=== PATIENT | male | born 1950 | race Caucasian/White ===

== ENCOUNTER 2016-05-25 06:34 | Day surgery (SDC) | payer MEDICARE ==
[~2016-05-25 06:34] MED LIST: ACET325T9 PO; LISI10TA2 PO; METO25TA4 PO; PRED20TA PO; RIVA15TA PO; TRAM50TA PO
[2016-05-25] MEDS ORDERED: HYDROMORPHONE 2 MG/ML VIAL. IV PRN (07:00)
[2016-05-25] MEDS ORDERED: MORPHINE SULFATE 2 MG/ML DISP.SYRIN. IV PRN (07:00)
[2016-05-25] MEDS ORDERED: ONDANSETRON PF 4 MG/2 ML VIAL. IV PRN (07:00)
[2016-05-25] MEDS ORDERED: PROCHLORPERAZINE 10 MG/2 ML VIAL. IV PRN (07:00)
[2016-05-25] MEDS ORDERED: FENTANYL PF 100 MCG/2 ML VIAL. IV PRN ×2 (07:00)
[2016-05-25] MEDS ORDERED: IV RINGERS,LACTATED 1000ML 1,000 ML IV SCH (07:00)
[2016-05-25] MEDS ORDERED: LIDOCAINE 1% 1 ML SYRINGE. ID PRN (07:00)
[2016-05-25] MEDS ORDERED: LIDOCAINE 2% TOPICAL JELLY 30GM TUBE. TP ONE (07:40)
[2016-05-25] MEDS ORDERED: BENZOCAINE ONE 20% MUCOSAL SPRAY. (07:40)
[2016-05-25] MEDS ORDERED: LIDOCAINE 2% VISCOUS 15 ML SOLUTION. ONE (07:40)
[2016-05-25] MEDS ORDERED: PROPOFOL 20 ML IV ONE (07:50)
--- NOTE | 2016-05-25 08:26 | EKG ---
[facility] [address] [place] [address] Test Date: 2016-05-25 Test Time: 08:24:49 Pat Name: VERONICA GARZA Department: Room: Gender: M Audit Associate: JERRICA : 1950 Requested By: CHRISTIAN CRAWLEY Order Number: [id number] Reading MD: Christian Crawley Measurements Intervals [place] Rate: 89 P: 62 [place]: 180 QRS: -24 QRSD: 88 T: 14 QT: 354 QTc: 432 Interpretive Statements SINUS RHYTHM ATRIAL PREMATURE COMPLEX(ES) Electronically Signed On 05-25-2016 17:56:14 CDT by Christian Crawley
[2016-05-25 08:51] VITALS: BP 106/69
--- NOTE | 2016-05-25 09:58 | CARD ---
APPROVED REPORT EXAM: Transesophageal echocardiogram with color flow Doppler and Synchronized Cardioversion. INDICATION Atrial Fibrillation Reason For Test : Rule out Intracardiac Thrombus. PROCEDURE After obtaining informed consent, patient underwent transesophageal echo in the PACU. Type of Sedation : General Anesthesia Sedation was provided by anesthesiologist, see EMR for medications administered. Transesophageal probe was inserted and advanced into esophagus by Roldan Crawley MD. The TOSHIA was performed without complications. Synchronized Cardioversion attempted: Successful Synchronized Cardioversion acheived with 200 Joules after 1 attempt(s). Rhythm following Synchronized Cardioversion: Normal Sinus Rhythm Throughout the procedure, the blood pressure, pulse oximetry, cardiac rhythm, and rate were monitored . The patient tolerated the procedure without adverse effects. Recovery from conscious sedation was une ventful and vital signs were stable. LEFT VENTRICLE The left ventricle is normal size. There is mild concentric left ventricular hypertrophy. Left ventri ade systolic function is mild to moderately impaired. The Ejection Fraction is 40%. There is global h ypokinesis of the left ventricle. No left ventricle thrombus noted on this study. RIGHT VENTRICLE The right ventricle is normal size. The right ventricular systolic function is normal. ATRIA The left atrium appears dilated. The right atrium size is normal. The interatrial septum is intact wi th no evidence for an atrial septal defect or patent foramen ovale as noted on 2-D or Doppler imaging . There is no thrombus noted in the left atrial appendage. AORTIC VALVE The aortic valve is trileaflet. Doppler and Color Flow revealed mild to moderate aortic regurgitation . There is no significant aortic valvular stenosis. MITRAL VALVE There is a moderate prolapse of the P2 segment of the posterior leaflet. There is no mitral valve rm nosis. Doppler and Color Flow revealed moderate mitral regurgitation. TRICUSPID VALVE The tricuspid valve is normal in structure and function. Doppler and Color Flow revealed mild tricusp id regurgitation. There is no tricuspid valve stenosis. PULMONIC VALVE The pulmonic valve is not well visualized. GREAT VESSELS The aortic root is normal in size. The ascending aorta is normal in size. Critical Notification Critical Value: No <Conclusion> Left ventricle systolic function is mild to moderately impaired. The Ejection Fraction is 40%. There is global hypokinesis of the left ventricle. There is no thrombus noted in the left atrial appendage. Doppler and Color Flow revealed mild to moderate aortic regurgitation. Doppler and Color Flow revealed moderate mitral regurgitation.
--- NOTE | 2016-05-25 23:55 | ACF ---
Admission Forms Criteria CARDIOLOGY GRG Clinical Indications for Admission to Inpatient Care ( Place 'X' for any and all applicable criteria): Hospital admission is needed for appropriate care of the patient because of ANY ONE of the following (1): [ ] I. Hemodynamic instability as indicated by ALL of the following (1)(2)(3) (4)(5) [ ]a) Vital signs or other findings not as expected for chronic patient condition or baseline [ ]b) Instability indicated by ANY ONE of the following: [ ]i) Hypotension [ ]ii) Symptomatic Tachycardia unresponsive to treatment ( e.g., analgesia, fluids, sedation as indicated) [ ]iii) Inadequate perfusion indicated by ANY ONE of the following: [ ] 1) Lactic acidosis (> 2 mmol/L) [ ] 2) New abnormal capillary refill (> 3 seconds) [ ] 3) Reduced urine output [ ] 4) New altered mental status [ ]iv) Orthostatic vital sign changes unresponsive to treatment (e.g., fluids) [ ]v) IV inotropic or vasopressor medication required to maintain adequate blood pressure or perfusion [ ] II. Severe heart failure as indicated by ANY ONE of the following(17)(18) [ ]a) Respiratory distress [ ]b) Hypotension [ ]c) Anasarca (refractory to outpatient therapy) [ ]d) Cardiac arrhythmias of immediate concern [ ]e) Myocardial ischemia [ ] III. Cardiac arrhythmias or findings of immediate concern indicated by ANY ONE of the following (19)(20): [ ] a) Heart rhythms that are inherently dangerous or unstable indicated by ANY ONE of the following (21)(22)(23): [ ] i) Resuscitated ventricular fibrillation or cardiac arrest [ ] ii) Ventricular escape rhythm [ ] iii) Sustained ventricular tachycardia (30 seconds or more of ventricular rhythm at greater than 100 beats per minute) [ ] iv) Nonsustained ventricular tachycardia and ANY ONE of the following: [ ] 1) Suspected cardiac ischemia as cause or consequence of ventricular tachycardia [ ] 2) In setting of acute myocarditis [ ] b) Unstable cardiac conduction defects indicated by ANY ONE of the following(23)(24)(25) [ ] i) Type II second-degree atrioventricular block [ ]ii) Third-degree atrioventricular block [ ]iii) New-onset left bundle branch block with suspected myocardial ischemia [ ]c) Any heart rhythm and ANY ONE of the following (21)(22)(26)(27) (28) [ ] i) Continuous long-term ECG monitoring needed (e.g., initiation of drug requiring monitoring for more than 24 hours) [ ] ii) Patient has automatic implanted cardioverter defibrillator that is repeatedly firing, malfunctioning, or in need of immediate adjustment of settings beyond the scope of ambulatory or observation care [ ]d) Heart rhythms of concern due to ANY ONE of the following: [ ] i) Hypotension [ ] ii) Respiratory distress [ ] iii) Association with other significant symptoms (e.g., bradycardia with syncope or ongoing dizziness, supraventricular tachycardia with chest pain (14)(15)(17) [ ] IV. Monitoring for cardiac contusion beyond the scope of observation care needed [A](30)(31)(32) [ ] V. Surgical or device complication (e.g., valve replacement complication , pacemaker dysfunction) (35)(41)(44)(45)(46) [ ] . Inpatient palliative care needed. [B](49) Also use Inpatient Palliative Care Criteria [ ] VII. Nonbacterial thrombotic (marantic) endocarditis (36)(43)(47)(48) [X] VIII. Cardiology condition, symptom, or finding for which emergency and observation care has failed or are not considered appropriate. [ ] IX. Acute valvular disease requiring inpatient as indicated by ANY ONE of the following (41) [ ]a) Acute valvular regurgitation (42) [ ]b) Noninfectious valvulitis (43) [ ]c) Obstructive valve thrombosis [ ]d) Paravalvular leak [ ]e) Other significant valvular disorder remaining after emergency or observation level of care (as appropriate) [ ]X. Pericardial disease requiring inpatient treatment as indicated by ANY ONE of the following (33)(34)(35)(36)(37) [ ]a) Suspected tamponade (38)(39)(40) [ ]b) Hemopericardium [ ]c) Other significant pericardial disorder remaining after emergency or observation level of care (as appropriate) [ ] XI. Cardiac ischemia beyond scope of emergency and observation care. [ ] XII. Hypertension requiring inpatient treatment as indicated by ANY ONE of the following (6)(7)(8) [ ]a) SBP greater than 220 mm Hg or DBP greater than 120 mmHg despite treatment [ ]b) SBP greater than 140 mm Hg or DBP greater than 100 mm Hg with evidence of acute end organ damage as indicated by ANY ONE of the following [ ] i) Encephalopathy [ ] ii) Acute renal failure as indicated by new onset of ANY ONE of the following (9)(10)(11)(12)(13) [ ]1) 3-fold rise in serum creatinine from baseline [ ]2) Serum creatinine greater than 4 mg/dL ( 354 micromoles/L) with acute rise greater than 0.5 mg/dL (44.2 micromoles/L) [ ]3) Reduction of more than 75% in estimated glomerular filtration rate from baseline [ ]4) Estimated glomerular filtration rate less than 35 mL/min/1.73m2 (0.59 mL/sec/1.73m2) in child up to 18 years of age [ ]5) Cessation of urine output indicated by ALL of the following [ ]A. Adequate volume status [ ]B. Inadequate urine output as indicated by ANY ONE of the following [ ]a. Urine output less than 0.3 mL/kg/hr for 24 hours [ ]b. Anuria (urine output less than 0.1 mL/kg/hr) for 12 hours [ ] iii) Aortic dissection [ ] iv) Myocardial Ischemia [ ] v) Left ventricular heart failure [ ]vi) Retinal Hemorrhage [ ]vii) Other significant finding [ ]c) Hypertension in child requiring inpatient treatment as indicated by ALL of the following(14)(15)(16) [ ] i) Outpatient treatment not effective, not available, or not appropriate [ ]ii) SBP or DBP greater than 95th percentile for age [ ]iii) Evidence of acute end organ damage as indicated by ANY ONE of the following [ ]1) Altered mental status [ ]2) Acute renal failure as indicated by new onset of ANY ONE of the following(9)(10)(11)(12)(13) [ ]A. 3-fold rise in serum creatinine from baseline [ ]B. Serum creatinine greater than 4 mg/dL (354 micromoles/L) with acute rise greater than 0.5 mg/dL (44.2 micromoles/L) [ ]C. Reduction of more than 75% in estimated glomerular filtration rate from baseline [ ]D. Estimated glomerular filtration rate less than 35 mL/min/1.73m2 (0.59 mL/sec/1.73m2) in child up to 18 years of age [ ]E. Cessation of urine output indicated by ALL of the following [ ]a. Adequate volume status [ ]b. Inadequate urine output as indicated by ANY ONE of the following [ ]i) Urine output less than 0.3 mL/kg/hr for 24 hours [ ]ii) Anuria ( urine output less than 0.1 mL/kg/hr) for 12 hours [ ]3) Severe headache [ ]4) Visual disturbance [ ]5) Retinal hemorrhage [ ]6) Other significant finding [ ]XIII. Complications of transplanted heart indicated by ANY ONE of the following(61): [ ]a) Acute graft rejection requiring inpatient management (eg, intravenous immunosuppression)(62)(63) [ ]b) Acute graft heart failure indicated by ANY ONE of the following(64): [ ]i) Hemodynamic instability [ ]ii) Cardiac arrhythmias of immediate concern [ ]iii) Pulmonary edema that is very severe (eg, mechanical ventilation needed, imminent or likely, need for 100% oxygen to keep oxygen saturation above 90%) [ ]iv) Pulmonary edema that is persistent as indicated by ALL of the following: [ ]1) New need for oxygen therapy to keep oxygen saturation above 90% (or increased FiO2 need from baseline) [ ]2) Has not improved sufficiently with emergency department or observation care IV diuretics or other heart failure treatments[E] [ ]v) Altered mental status that is severe or persistent [ ]vi) Increased creatinine (new on laboratory test) with reduction of more than 50% in estimated glomerular filtration rate from baseline [ ]vii) Progressively (ongoing) rising creatinine (known from past laboratory test) with reduction of more than 25% in estimated glomerular filtration rate from baseline [ ]viii) Acute renal failure [ ]ix) Acute peripheral ischemia (eg, examination shows pulseless, cool, mottled, or cyanotic extremity) [ ]x) Pulmonary artery catheter monitoring needed [ ]xi) Other sign or symptom of heart failure requiring inpatient treatment (ie, too severe or not responsive to outpatient and observation care treatment) [ ]c) Infection requiring inpatient management (eg, Hemodynamic instability, need for intravenous antimicrobial treatment)(66)(67)(68)(69)(70) [ ]d) Cardiac allograft vasculopathy requiring inpatient management ( eg evidence of cardiac ischemia)(71) [ ]e) Other complication of transplanted heart (eg, stroke, severe pulmonary hypertension, severe valvular dysfunction) requiring inpatient management(72) The original [facility] content created by [facility] has been revised. The portions of the content which have been revised are identified through the use of italic text or in bold, and [facility] has neither reviewed nor approved the modified material. All other unmodified content is copyright [facility]. Please see references footnoted in the original [facility] edition 2016 Admission Criteria Met?: Yes ELIF FUENTES. May 25, 2016 23:55
== END 2016-05-25 09:18 | disposition home or self-care (01) ==
LOC: SURG 06:34
PROVIDERS: ATTEND Internal Medicine Cardiovascular Disease
DX: I35.1 Nonrheumatic aortic (valve) insufficiency (principal); I07.1 Rheumatic tricuspid insufficiency; I48.91 Unspecified atrial fibrillation
CPT/HCPCS: 76376; 93005; 93312; 93325; J2704; 92960

== ENCOUNTER → 2017-08-23 | Day surgery (SDC) | payer MEDICARE ==
[~2017-08-23] MED LIST changes: -ACET325T9 PO; +LIDOCAINE 2% PF Vial for OR 5 ML VIAL.; -LISI10TA2 PO; -METO25TA4 PO; -PRED20TA PO; +PROPOFOL 20 ML IV; -RIVA15TA PO; -TRAM50TA PO
== END | disposition home or self-care (01) ==
LOC: ENDOS 12:53
DX: D12.2 Benign neoplasm of ascending colon (principal); D12.3 Benign neoplasm of transverse colon; K57.30 Diverticulosis of large intestine without perforation or abscess without bleeding; M35.3 Polymyalgia rheumatica; I48.91 Unspecified atrial fibrillation; Z79.82 Long term (current) use of aspirin; Z98.890 Other specified postprocedural states; Z87.891 Personal history of nicotine dependence; Z86.010 Personal history of colon polyps
CPT/HCPCS: 45380; 45385; 88305; J2001; J2704

== ENCOUNTER → 2017-09-27 | Outpatient (CLI) | payer MEDICARE ==
[2017-09-27] MEDS: REGADENOSON 0.4 MG/5 ML DISP.SYRIN. IV (09:45)
== END | disposition home or self-care (01) ==
LOC: NM 09:03
DX: I48.0 Paroxysmal atrial fibrillation (principal); I10 Essential (primary) hypertension; Z87.891 Personal history of nicotine dependence; Z86.010 Personal history of colon polyps
CPT/HCPCS: 78452; 93017; 96374; 96375; 96376; A9500; J2785

== ENCOUNTER → 2017-11-10 | Day surgery (SDC) | payer MEDICARE ==
[~2017-11-10] MED LIST changes: +ACET325T9 PO; +APIX5TAB PO; +ASPI325T8 PO; +BENZOCAINE ONE 20% MUCOSAL SPRAY.; +BENZOCAINE ONE 20% MUCOSAL SPRAY. MM SCH; +DRON400T PO; +GLUC100018 PO; +HYDR200T71 PO; +HYDROmorphone 2 MG/ML VIAL IV PRN; +IBUP-1027 PO; +IV RINGERS,LACTATED 1000ML 1,000 ML IV SCH; +LIDOCAINE 1% PF 2 ML VIAL. ID PRN; -LIDOCAINE 2% PF Vial for OR 5 ML VIAL.; +LIDOCAINE 2% TOPICAL JELLY 5GM TUBE. TP ONE; +LIDOCAINE 2% VISCOUS 15 ML SOLUTION. ONE; +LIDOCAINE 2% VISCOUS 15 ML SOLUTION. SWSW ONE; +LISI10TA2 PO; +METO25TA4 PO; +MORPHINE SULFATE 2 MG/ML VIAL. IV PRN; +ONDANSETRON PF 4 MG/2 ML VIAL. IV PRN; +PRED20TA PO; +PROCHLORPERAZINE 10 MG/2 ML VIAL. IV PRN; -PROPOFOL 20 ML IV; +PROPOFOL 20 ML IV ONE; +RIVA15TA PO; +TRAM50TA PO; +TURM500C4 PO; +fentaNYL PF VIAL 100 MCG/2 ML VIAL IV PRN
--- NOTE | 2017-11-10 14:09 | EKG ---
[facility] [address] [place] [address] Test Date: 2017-11-10 Test Time: 13:13:19 Pat Name: VERONICA GARZA Department: Room: Gender: M Timber Packer: JJ : 1950 Requested By: LETICIA MOELLER Order Number: [id number] Reading MD: Christian Crawley MD Measurements Intervals [place] Rate: 72 P: [place]: QRS: -21 QRSD: 90 T: 11 QT: 378 QTc: 415 Interpretive Statements ATRIAL FIBRILLATION WITH CONTROLLED VENTRICULAR RESPONSE NON-SPECIFIC ST/T CHANGES Electronically Signed On 11-15-2017 11:44:59 CDT by Christian Crawley MD
--- NOTE | 2017-11-10 15:16 | EKG ---
[facility] [address] [place] [address] Test Date: 2017-11-10 Test Time: 15:10:20 Pat Name: VERONICA GARZA Department: Room: Gender: M Electronic Pagination System Operator: VALARIE : 1950 Requested By: CHRISTIAN CRAWLEY Order Number: [id number] Reading MD: Christian Crawley MD Measurements Intervals [place] Rate: 61 P: 45 AR: 236 QRS: -24 QRSD: 98 T: 16 QT: 410 QTc: 414 Interpretive Statements SINUS RHYTHM ATRIAL PREMATURE COMPLEX(ES) Electronically Signed On 11-15-2017 11:45:44 CDT by Christian Crawley MD
[2017-11-10 16:00] VITALS: BP 125/74
--- NOTE | 2017-11-10 16:27 | CARD ---
MR#: [id number] Date of Study: 11/10/2017 Ordering Physician: EDWARD COBB, Referring Physician: EDWARD COBB, Tech: LAISHA Phillips APPROVED REPORT EXAM: Transesophageal echocardiogram with color flow Doppler and Synchronized Cardioversion. Mitral Valve MV E Peak Gr.133mmHg Reason For Test : Rule out Intracardiac Thrombus. PROCEDURE After obtaining informed consent, patient underwent transesophageal echo in the PACU. Type of Sedation : General Anesthesia Sedation was administered by Mau Ramirez. Sedation was achieved with Propofol 150mg intravenously. Transesophageal probe was inserted and advanced into esophagus by Roldan Cobb MD. The TOSHIA was performed without complications. Synchronized Cardioversion attempted: Successful Synchronized Cardioversion acheived with 200 Joules after 1 attempt(s). Throughout the procedure, the blood pressure, pulse oximetry, cardiac rhythm, and rate were monitored . The patient tolerated the procedure without adverse effects. Recovery from general anesthesia was une ventful and vital signs were stable. LEFT VENTRICLE The left ventricle is normal size. There is mild concentric left ventricular hypertrophy. Moderate LV dysfunction. EF 45-50%. Difficult to estimate due to afib. There is global hypokinesis of the left v entricle. Tissue Doppler imaging reveals moderate left ventricular diastolic dysfunction. No left tyrese tricle thrombus noted on this study. There is no ventricular septal defect visualized. RIGHT VENTRICLE The right ventricle is normal size. There is normal right ventricular wall thickness. The right ventr icular systolic function is normal. ATRIA The left atrium is moderately dilated. The right atrium is mildly dilated. The interatrial septum is intact with no evidence for an atrial septal defect or patent foramen ovale as noted on 2-D or Dopple r imaging. There is no thrombus noted in the left atrial appendage. AORTIC VALVE The aortic valve is mildly thickened. Doppler and Color Flow revealed mild aortic regurgitation. Ther e is no significant aortic valvular stenosis. There is no aortic valvular vegetation. MITRAL VALVE The mitral valve is mildly thickened. A mild mitral valve prolapse is present. There is no mitral candie ve stenosis. Doppler and Color-flow revealed mild to moderate mitral regurgitation. TRICUSPID VALVE The tricuspid valve leaflets are thickened , but open well. Doppler and color-flow analysis was perfo rmed. No significant regurgitation. There is no tricuspid valve prolapse or vegetation. There is no t ricuspid valve stenosis. PULMONIC VALVE The pulmonary valve is normal in structure and function. Doppler and Color Flow revealed mild pulmoni c valvular regurgitation. There is no pulmonic valvular stenosis. GREAT VESSELS The aortic root is mildly enlarged. The pulmonary artery is normal. Normal pulmonary venous flow (Dop pler). The IVC is normal in size and collapses >50% with inspiration. PERICARDIAL EFFUSION There is no evidence of significant pericardial effusion. There is no pleural effusion. Critical Notification Critical Value: No <Conclusion> Moderate LV dysfunction. EF 45-50%. Difficult to estimate due to afib. There is global hypokinesis of the left ventricle. There is no thrombus noted in the left atrial appendage. Doppler and Color Flow revealed mild aortic regurgitation. Doppler and Color-flow revealed mild to moderate mitral regurgitation. Successful CVN to SR with one 200J shock. Signed by : Edward Cobb, Electronically Approved : 11/10/2017 16:27:02
== END | disposition home or self-care (01) ==
LOC: SURG 13:32
PROVIDERS: ATTEND Internal Medicine Cardiovascular Disease
DX: I48.0 Paroxysmal atrial fibrillation (principal); I08.0 Rheumatic disorders of both mitral and aortic valves; I10 Essential (primary) hypertension; Z79.899 Other long term (current) drug therapy; Z98.890 Other specified postprocedural states; I42.9 Cardiomyopathy, unspecified
CPT/HCPCS: 92960; 93005; 93312; 93325; J2704

== ENCOUNTER 2020-10-13 13:25 | Day surgery (SDC) | payer MEDICARE ==
[~2020-10-13] VITALS: Ht 188 cm; Wt 115.9 kg
[~2020-10-13 13:25] MED LIST changes: +AMIO200T6 PO; -BENZOCAINE ONE 20% MUCOSAL SPRAY.; -BENZOCAINE ONE 20% MUCOSAL SPRAY. MM SCH; -DRON400T PO; +DRON400T6 PO; -HYDROmorphone 2 MG/ML VIAL IV PRN; -LIDOCAINE 1% PF 2 ML VIAL. ID PRN; -LIDOCAINE 2% TOPICAL JELLY 5GM TUBE. TP ONE; -LIDOCAINE 2% VISCOUS 15 ML SOLUTION. ONE; -LIDOCAINE 2% VISCOUS 15 ML SOLUTION. SWSW ONE; +LISI-517 PO; +LISI10TA16 PO; -LISI10TA2 PO; -MORPHINE SULFATE 2 MG/ML VIAL. IV PRN; -ONDANSETRON PF 4 MG/2 ML VIAL. IV PRN; -PROCHLORPERAZINE 10 MG/2 ML VIAL. IV PRN; -PROPOFOL 20 ML IV ONE; +WARF-31 PO; -fentaNYL PF VIAL 100 MCG/2 ML VIAL IV PRN
[2020-10-13 14:17] VITALS: BP 125/79
[2020-10-13 14:33] LABS: BASO # 0.1 x10^3/uL (0.0-0.2); BASO % 1 % (0-3); EOS # 0.1 x10^3/uL (0.0-0.7); EOS % 1 % (0-3); HEMATOCRIT 39.8 % (39.0-53.0); HEMOGLOBIN 13.3 g/dL (13.0-17.5); LYMPH # 1.5 x10^3/uL (1.0-4.8); LYMPH % 25 % (24-48); MEAN CORPUSCULAR HEMOGLOBIN 31 pg (25-35); MEAN CORPUSCULAR HGB CONC 33 g/dL (31-37); MEAN CORPUSCULAR VOLUME 93 fL (79-100); MONO # 0.5 x10^3/uL (0.0-1.1); MONO % 9 % (0-9); NEUT # 3.8 x10^3/uL (1.8-7.7); NEUT % 64 % (31-73); PLATELET COUNT 248 x10^3/uL (140-400); RED BLOOD COUNT 4.29 x10^6/uL (4.30-5.70); RED CELL DISTRIBUTION WIDTH 14.4 % (11.5-14.5)
--- NOTE | 2020-10-13 14:38 | EKG ---
[facility] [address] [place] [address] Test Date: 2020-10-13 Test Time: 14:34:19 Pat Name: VERONICA GARZA Department: Room: Gender: M Cost Estimator: MARIE : 1950 Requested By: EDWARD COBB Order Number: [id number] Reading MD: Measurements Intervals [place] Rate: 73 P: [place]: QRS: -26 QRSD: 90 T: 18 QT: 394 QTc: 438 Interpretive Statements IRREGULAR RHYTHM, NO P-WAVE FOUND LEFTWARD AXIS QRS(T) CONTOUR ABNORMALITY CONSISTENT WITH ANTEROSEPTAL INFARCT PROBABLY OLD ABNORMAL ECG RI6.02 Compared to ECG 11/10/2017 15:10:20 Left-axis deviation now present Myocardial infarct finding now present Sinus rhythm no longer present
[2020-10-13 14:43] LABS: CALCIUM 8.7 mg/dL (8.5-10.1); CREATININE 1.3 mg/dL (0.7-1.3); GFR 54.3; POTASSIUM 4.5 mmol/L (3.5-5.1)
[2020-10-13 14:45] LABS: PROTHROMBIN TIME PATIENT 23.1 SEC (11.7-14.0)
[2020-10-13] MEDS ORDERED: BENZOCAINE ONE 20% MUCOSAL SPRAY. MM (14:45)
[2020-10-13] MEDS ORDERED: LIDOCAINE 2% VISCOUS 15 ML SOLUTION. SWSW ONE (14:45)
[2020-10-13] MEDS ORDERED: LIDOCAINE 2% TOPICAL JELLY 30GM TUBE. TP ONE (14:45)
[2020-10-13] MEDS ORDERED: LIDOCAINE 2% PF 5 ML VIAL. ONE (14:51)
[2020-10-13] MEDS ORDERED: PROPOFOL 10 MG/ML (20ML) VIAL. IV ONE (14:51)
--- NOTE | 2020-10-13 15:39 | EKG ---
[facility] [address] [place] [address] Test Date: 2020-10-13 Test Time: 15:38:01 Pat Name: VERONICA GARZA Department: Room: Gender: M Felled Seam Operator: : 1950 Requested By: EDWARD COBB Order Number: [id number] Reading MD: Measurements Intervals [place] Rate: 58 P: 38 FL: 264 QRS: -25 QRSD: 94 T: 13 QT: 444 QTc: 440 Interpretive Statements SINUS RHYTHM PROLONGED FL INTERVAL LEFTWARD AXIS ABNORMAL ECG RI6.02 Compared to ECG 10/13/2020 14:34:19 First degree AV block now present Myocardial infarct finding no longer present
[2020-10-13 15:49] VITALS: BP 99/66
--- NOTE | 2020-10-14 14:32 | CARD ---
MR#: [id number] Date of Study: 10/13/2020 Ordering Physician: EDWARD CRAWLEY, Referring Physician: EDWARD CRAWLEY, Tech: Jyotsna Joshua, [facility] APPROVED REPORT EXAM: Transesophageal echocardiogram with color flow Doppler and Synchronized Cardioversion. INDICATION Pre-Op Reason For Test : Rule out Intracardiac Thrombus. PROCEDURE After obtaining informed consent, patient underwent transesophageal echo in the PACU. Type of Sedation : General Anesthesia Sedation was administered by Sherry. Sedation was achieved with Propofol 300mg intravenously. Transesophageal probe was inserted and advanced into esophagus by Roldan Crawley MD. The TOSHIA was performed without complications. Synchronized Cardioversion attempted: Successful Synchronized Cardioversion acheived with 200 Joules after 1 attempt(s). Rhythm following Synchronized Cardioversion: Normal Sinus Rhythm Throughout the procedure, the blood pressure, pulse oximetry, cardiac rhythm, and rate were monitored . The patient tolerated the procedure without adverse effects. Recovery from general anesthesia was une ventful and vital signs were stable. LEFT VENTRICLE The left ventricle is normal size. There is borderline concentric left ventricular hypertrophy. The l eft ventricular systolic function is moderately decreased. EF 40% There is moderate global hypokinesi s. No left ventricle thrombus noted on this study. RIGHT VENTRICLE The right ventricle is normal size. There is normal right ventricular wall thickness. The right ventr icular systolic function is normal. ATRIA The left atrium size is normal. The right atrium size is normal. The interatrial septum is intact wit h no evidence for an atrial septal defect or patent foramen ovale as noted on 2-D or Doppler imaging. There is no thrombus noted in the left atrial appendage. AORTIC VALVE The aortic valve is normal in structure and function. Doppler and Color Flow revealed trace to mild a ortic regurgitation. There is no significant aortic valvular stenosis. MITRAL VALVE The mitral valve is normal in structure and function. There is no evidence of mitral valve prolapse. There is no mitral valve stenosis. Doppler and Color Flow revealed no mitral valve regurgitation note d. TRICUSPID VALVE The tricuspid valve is normal in structure and function. Doppler and Color Flow revealed trace to mil d tricuspid regurgitation. There is no tricuspid valve stenosis. PULMONIC VALVE Doppler and Color Flow revealed trace pulmonic valvular regurgitation. There is no pulmonic valvular stenosis. GREAT VESSELS The aortic root is normal in size. Critical Notification Critical Value: No <Conclusion> The left ventricular systolic function is moderately decreased. EF 40% There is moderate global hypokinesis. There is no thrombus noted in the left atrial appendage. Doppler and Color Flow revealed trace to mild aortic regurgitation. Successful CVN to SR. Signed by : Edward Crawley, Electronically Approved : 10/14/2020 14:32:33
== END 2020-10-13 16:20 | disposition home or self-care (01) ==
LOC: SURG 13:25
PROVIDERS: ATTEND Internal Medicine Cardiovascular Disease
DX: I48.91 Unspecified atrial fibrillation (principal); I08.2 Rheumatic disorders of both aortic and tricuspid valves; I10 Essential (primary) hypertension; I42.9 Cardiomyopathy, unspecified; M19.90 Unspecified osteoarthritis, unspecified site; F17.210 Nicotine dependence, cigarettes, uncomplicated; Z86.010 Personal history of colon polyps; Z98.890 Other specified postprocedural states
CPT/HCPCS: 36415; 80048; 85025; 85610; 85730; 92960; 93005; 93312; 93325; J2704

== ENCOUNTER → 2021-05-27 | Outpatient (CLI) | payer MEDICARE ==
[~2021-05-27] MED LIST changes: +AMIO200T53 PO; -AMIO200T6 PO; -IV RINGERS,LACTATED 1000ML 1,000 ML IV SCH; -LISI-517 PO; +LISI5TAB15 PO
--- NOTE | 2021-05-27 09:46 | KCIC ---
EXAM: Brain MRI without contrast. HISTORY: Tremor. TECHNIQUE: Multiplanar, multisequence magnetic resonance imaging of the brain was performed without c ontrast. COMPARISON: None. FINDINGS: There is no restricted diffusion to suggest acute or subacute infarction. There is no susce ptibility effect to suggest hemorrhage. There is no mass effect or midline shift. There is a tiny chr onic lacunar infarct within the medial left thalamus. There is cerebral atrophy. There are a few scattered foci of signal change within the cerebral white matter, likely due to chronic small vessel disease. There is a small left frontal scalp lipoma. The o rbits are unremarkable. There is mild paranasal sinus mucosal thickening. There are tiny left maxilla ry sinus mucous retention cyst. The mastoid air cells are unremarkable. There are normal flow voids within the cerebral vessels. There is no suspicious calvarial lesion. The re is mild cerebellar tonsillar ectopia, not within limits for a Chiari malformation. IMPRESSION: 1. No acute intracranial finding. 2. Mild cerebral atrophy and cerebral white matter changes due to chronic small vessel disease. 3. Tiny chronic lacunar infarct within the medial left thalamus. Electronically signed by: Jania Dow MD (05/27/2021 9:44 AM) [id number]
== END ==
LOC: KCIC MRI 07:50
PROVIDERS: ATTEND Nurse Practitioner Family
DX: I63.81 Other cerebral infarction due to occlusion or stenosis of small artery (principal); G31.89 Other specified degenerative diseases of nervous system; R90.82 White matter disease, unspecified; I67.89 Other cerebrovascular disease; D17.0 Benign lipomatous neoplasm of skin and subcutaneous tissue of head, face and neck; J34.89 Other specified disorders of nose and nasal sinuses; J34.1 Cyst and mucocele of nose and nasal sinus; G25.0 Essential tremor
CPT/HCPCS: 70551